=== PATIENT | female | born 1955 | race African-American/Black ===

== ENCOUNTER 2016-06-01 11:15 | Emergency (ER) | payer BC ==
[~2016-06-01] VITALS: Wt 129.5 kg
[2016-06-01] MEDS ORDERED: HYDROCODONE/APAP (10/325) TAB PO ONE (13:30)
--- NOTE | 2016-06-01 14:14 | RADRPT ---
PROCEDURE: XR Cervical Spine. CLINICAL INDICATION: Pain TECHNIQUE: Three views of the cervical spine were performed. The images were reviewed on a PACS [employer]. COMPARISON: None. FINDINGS: The vertebral body heights are preserved. There are no acute fractures. There is mild to moderate disk space narrowing with small anterior endplate osteophytes at C5-C6. The remaining disk spaces a re maintained. There is straightening of the normal cervical lordosis, otherwise the alignment is m aintained. The facet joints are intact. The C1-C2 articulation is intact. The prevertebral soft ti ssues are within normal limits. RPTAT: EE IMPRESSION: 1. Mild to moderate degenerative disk disease at C5-C6. 2. Straightening of the normal cervical lordosis. .Yazmin Dubois MD, Date Time Electronically viewed and signed by .Yazmin Dubois MD, on 06/01/2016 14:17 .T/
--- NOTE | 2016-06-01 14:16 | RADRPT ---
PROCEDURE: XR left Shoulder. CLINICAL INDICATION: Pain TECHNIQUE: 3 views of the left shoulder are available for review. COMPARISON: None available FINDINGS: There is no acute fracture or dislocation. The glenohumeral and acromioclavicular joints are intact . There is mild joint space narrowing with osseous spurring of the acromioclavicular joint. There i s also osseous spurring within the greater tuberosity of the humeral head with a punctate 2 mm calci fic density adjacent to the greater tuberosity of the humeral head. The soft tissues are unremarkabl e. There is no fracture of the visualized left ribs. The visualized left lung is clear. RPTAT: EE IMPRESSION: 1. No acute bony abnormality. 2. Mild to moderate osteoarthrosis of the acromioclavicular joint. 3. Mild osseous spurring within the greater tuberosity of the humeral head which can be seen with r otator cuff tendinopathy with a 2 mm calcific density adjacent to the greater tuberosity of the francesca ral head suggestive of a small focus of hydroxyapatite deposition. .Yazmin Dubois MD, MD Date Time Electronically viewed and signed by .Yazmin Dubois MD, on 06/01/2016 14:19 .T/
[2016-06-01] MEDS ORDERED: IBUP-1542 PO (14:40)
[2016-06-01] MEDS ORDERED: HYDR-906 PO (14:41)
[2016-06-01] MEDS ORDERED: ORPH100T PO (14:41)
--- NOTE | 2016-06-01 15:09 | ERD ---
ER Documentation Chief Complaint Date/Time DATE: 06/01/16 TIME: 15:04 Chief Complaint LEFT SHOULDER PAIN FOR THE PAST WEEK. NON TRAUMATIC . HPI This is a 60-year-old female presents to the ER with left shoulder pain that started about a week and a half ago. Patient states that she had a previous rotator cuff injury and that she has been using a cane secondary to knee pain over the last week and a half. Patient developed pain that radiates down into her left shoulder. It is worse whenever she tries to lift up her shoulder. Patient denies any recent trauma. Patient denies any numbness or tingling of the area. Patient states that she see had this physical therapy for rotator cuff injury and this helped however pain has returned. She denies fevers or chills. Patient denies chest pain and shortness of breath. ROS 12 point review of systems was done, all negative except per HPI. Medications Home Meds Active Scripts Hydrocodone/Acetaminophen ([place] 5-325 Tablet) 1 Each Tablet, 1 TAB PO Q6H Y for PAIN, #20 TAB Prov:ANJALI ROJASNA C 06/01/16 Orphenadrine Citrate (Norflex) 100 Mg Tablet.sa, 100 MG PO BID for 5 Days, TAB.SA Prov:BOBCIARRA C 06/01/16 Ibuprofen* (Motrin*) 600 Mg Tab, 600 MG PO Q6, #30 TAB Prov:BOBCIARRA C 06/01/16 Physical Exam Vitals Vital Signs Date Time Temp Pulse Resp B/P Pulse Ox O2 Delivery O2 Flow Rate FiO2 06/01/16 11:23 98.5 59 20 134/82 97 Physical Exam GENERAL: The patient is well developed and appropriate for usual state of health , in no apparent distress. HEENT: Atraumatic. NECK: no cspine tenderness, tense trapezius muscles. CHEST: Clear to auscultation bilaterally. There are no rales, wheezes or rhonchi. HEART: Regular rate and rhythm. No murmurs, clicks, rubs or gallops. ABDOMEN: Soft, nontender and nondistended. Good bowel sounds. No rebound or guarding. No gross peritonitis. No gross organomegaly or masses. No Alejandro sign or McBurney point tenderness. BACK: No midline or flank tenderness. EXTREMITIES: Left shoulder: painful extension of shoulder, painful internal rotation. TTP over ac joint. unable to perform special exams secondary to pain. no elbow pain. NEURO: Alert and oriented. Results 24 hrs Current Medications Medications (Trade) Dose Ordered Sig/Ursula Route PRN Reason Start Time Stop Time Status Last Admin Dose Admin Acetaminophen/ Hydrocodone Bitart ([place] (10)) 1 tab ONCE ONCE PO 06/01/16 13:30 06/01/16 13:31 DC 06/01/16 14:11 Procedures/MDM This is a 60-year-old female presents to the ER with left shoulder pain. Patient did have some rotator cuff injury seen on x-ray. This is likely the cause of her pain. Patient has a history of previous rotator cuff injury. Patient is neurovascularly intact. Patient will be sent home with ibuprofen, [place], Norflex. I doubt septic joint, septic arthritis, osteomyelitis. She needs to follow-up with her primary care doctor in 2 days return to ER sooner symptoms worsen. My medical decision making was shared with the patient she understands and agrees. Departure Diagnosis: Primary Impression: Shoulder pain Condition: Stable Patient Instructions: Shoulder Pain (Uncertain Cause) Referrals: LEWIS CUETO (PCP) Additional Instructions: Call your primary care doctor TOMORROW for an appointment during the next 1-2 days.See the doctor sooner or return here if your condition worsens before your appointment time. CIARRA ROJAS Jun 01, 2016 15:08
== END 2016-06-01 15:17 | disposition home or self-care (01) ==
LOC: FTE 11:15
DX: M25.512 Pain in left shoulder (principal)
CPT/HCPCS: 72040; 73030; Z7610

== ENCOUNTER 2016-06-13 16:15 | Emergency (ER) | payer BC ==
[~2016-06-13] VITALS: Ht 177.8 cm; Wt 128.0 kg
[~2016-06-13 16:15] MED LIST: HYDR-906 PO; IBUP-1542 PO; ORPH100T PO
[2016-06-13 16:31] VITALS: Ht 177.8 cm; Wt 128.0 kg
[2016-06-13] MEDS ORDERED: NAPR-260 PO (17:16)
[2016-06-13] MEDS ORDERED: HYDR-906 PO (17:16)
--- NOTE | 2016-06-13 17:26 | ERD ---
ER Documentation Chief Complaint Date/Time DATE: 06/13/16 TIME: 17:21 Chief Complaint LEFT SHOULDER PAIN X 1 MONTH HPI 60 year old female comes in with left shoulder pain x 1 month. She states she has had neck pain that radiates to her left shoulder pain. She has been given [place] and ibuprofen for pain before. It is sharp, starts in the left portion of the neck was her left shoulder worse when she moves it. She states she has been having neck pain on the left side of radiates to her left shoulder and elbow. She was not able to follow-up with her primary care, they stated that if her pain is worse that she should go to the emergency department. She does not have any chest pain, nausea, vomiting or shortness of breath associated. Pain is nonexertional. ROS All systems reviewed and are negative except as per history of present illness. Medications Home Meds Active Scripts Naproxen* (Naprosyn*) 500 Mg Tablet, 500 MG PO BID Y for PAIN AND/OR INFLAMMATION, #60 TAB Prov:BARBRA CASTILLO PA-C 06/13/16 Hydrocodone/Acetaminophen ([place] 5-325 Tablet) 1 Each Tablet, 1 TAB PO Q6H Y for PAIN, #20 TAB Prov:BARBRA CASTILLO PA-C 06/13/16 Hydrocodone/Acetaminophen ([place] 5-325 Tablet) 1 Each Tablet, 1 TAB PO Q6H Y for PAIN, #20 TAB Prov:CIARRA ROJAS 06/01/16 Orphenadrine Citrate (Norflex) 100 Mg Tablet.sa, 100 MG PO BID for 5 Days, TAB.SA Prov:CIARRA ROJAS 06/01/16 Ibuprofen* (Motrin*) 600 Mg Tab, 600 MG PO Q6, #30 TAB Prov:CIARRA ROJAS 06/01/16 PMhx/Soc Hx Alcohol Use: No Hx Substance Use: No Hx Tobacco Use: No Physical Exam Vitals Vital Signs Date Time Temp Pulse Resp B/P Pulse Ox O2 Delivery O2 Flow Rate FiO2 06/13/16 16:31 97.7 65 18 147/81 97 Physical Exam General: Well-developed, well-nourished. The patient appears in no acute distress. HEENT: Head is normocephalic, atraumatic. No scleral icterus. Neck: Supple. Tender at C5-C6, no midline tenderness. No meningismus. Lungs: Clear to auscultation. Normal air movement. Heart: Regular rate and rhythm. S1 and S2 are normal. No murmurs, gallops, or rubs. Abdomen: Nondistended. Extremities: Reproducible left-sided shoulder pain with palpation at C5-C6. Full range of motion shoulder abduction, adduction. Radian, ulnar, median nerve intact. Radial pulses 2+ bilaterally. There is no edema to the upper extremities. Neurologic: Alert and oriented 3. No focal deficits. Normal speech and gait. Skin: Normal turgor. No rash or lesions. Procedures/MDM 60-year-old female presents with cervical radiculopathy consistent with C5-C6. Her previous x-rays did show degenerative changes in this region, she does not have any new trauma and really this pain is the same from a month ago. There are no signs or symptoms to consider anginal left-sided shoulder pain. She will be given a short course of pain medication, I did advise that the patient should follow-up with her primary care physician if she needs further refills. I do not see any drug-seeking behavior, [facility] report does not show any multiple medication refills from this patient. I have also asked if she would be able to speak to her doctor and a note was written and discharge instructions to speak to him about physical therapy, and possibly orthopedic evaluation. 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 PLEASE FOLLOW UP WITH YOUR PRIMARY PHYSICIAN FOR REFFERAL.IF YOU DO NOT HAVE A PRIMARY CARE PHYSICIAN AND/OR YOU CAN NOT AFFORD TO SEE A PHYSICIAN THE FOLLOWING RESOURCES HAVE BEEN SUPPLIED TO YOU. IT IS YOUR RESPONSIBILITY TO BE SEEN BY THE SPECIALIST BARBRA CASTILLO PA-C Jun 13, 2016 17:26
== END 2016-06-13 17:44 | disposition home or self-care (01) ==
LOC: FTE 16:15
DX: M54.2 Cervicalgia (principal)
CPT/HCPCS: 99283